=== PATIENT | female | born 1975 | race Caucasian/White ===

== ENCOUNTER 2017-05-21 08:42 | Emergency (ER) | payer BC ==
[2017-05-21 08:57] VITALS: BP 141/95
[2017-05-21] MEDS ORDERED: Prochlorperazine 10 MG/2 ML SDV IVPUSH ONE (09:04)
[2017-05-21] MEDS ORDERED: Ketorolac 30 MG/ML SDV IVPUSH ONE (09:04)
[2017-05-21] MEDS ORDERED: Sodium Chloride 0.9% 10 ML Syringe FLUSH PRN (09:04)
[2017-05-21] MEDS ORDERED: diphenhydrAMINE 50 MG/ML SDV IVPUSH ONE (09:04)
--- NOTE | 2017-05-21 09:11 | EDM.PDOC ---
ED HPI GENERAL MEDICAL PROBLEM - General Chief Complaint: Headache Stated Complaint: MIGRAINE x 3 DAYS Time Seen by Provider: 05/21/17 09:01 Source of Information: Reports: Patient History Limitations: Reports: No Limitations - History of Present Illness INITIAL COMMENTS - FREE TEXT/NARRATIVE: The patient presents with a headache. This started 3 days ago and it is on the right side. She has a history of migraines. She says this feels different. She had an episode like this 8 months ago and they did a CT of her head that was negative. She tried her imitrex and it did not help. She has nausea and vomiting. She has no numbness or weakness. She has no vision changes but the light does bother her eyes. Her last migraine was 3 weeks ago. She never had an MRI and she just sees her regular doctor for the migraines. Onset: Gradual Duration: Day(s): (3) Location: Reports: Head Quality: Reports: Sharp Severity: Severe Improves with: Reports: None Worsens with: Reports: None Associated Symptoms: Reports: Headaches, Nausea/Vomiting. Denies: Chest Pain, Fever/Chills, Shortness of Breath Right Headache Pain Score (Numeric/FACES): 9 - Related Data Allergies Allergy/AdvReac Type Severity Reaction Status Date / Time norco Allergy Vomiting Uncoded 05/21/17 08:53 Home Meds: Home Meds Acetaminophen with Codeine [Tylenol with Codeine #4 Tablet] 1 each PO BID PRN [History] Cyclobenzaprine [Flexeril] 10 mg PO BID PRN 05/21/17 [History] SUMAtriptan Succinate [Imitrex] 100 mg PO DAILY PRN 05/21/17 [History] Social & Family History - Tobacco Use Smoking Status *Q: Never Smoker Second Hand Smoke Exposure: No - Caffeine Use Caffeine Use: Reports: Coffee, Soda - Recreational Drug Use Recreational Drug Use: No ED ROS GENERAL - Review of Systems Review Of Systems: See Below Constitutional: Reports: No Symptoms HEENT: Reports: No Symptoms Respiratory: Reports: No Symptoms Cardiovascular: Reports: No Symptoms Endocrine: Reports: No Symptoms GI/Abdominal: Reports: Nausea, Vomiting. Denies: Abdominal Pain : Reports: No Symptoms Musculoskeletal: Reports: No Symptoms Skin: Reports: No Symptoms Neurological: Reports: Headache - Physical Exam Exam: See Below Exam Limited By: No Limitations General Appearance: Alert, No Apparent Distress Ears: Normal External Exam Nose: Normal Inspection Head Exam: Atraumatic, Normocephalic Neck: Normal Inspection Respiratory/Chest: No Respiratory Distress, Lungs Clear, Normal Breath Sounds Cardiovascular: Regular Rate, Rhythm, No Edema, No Murmur GI/Abdominal: Soft, Non-Tender, No Organomegaly, No Mass Neuro Exam (Abbreviated): Alert, Oriented, No Motor/Sensory Deficits Course - Vital Signs Last Recorded V/S: Last Vital Signs Temp 97.6 F 05/21/17 08:53 Pulse 83 05/21/17 08:53 Resp 18 05/21/17 08:53 BP 141/95 H 05/21/17 08:53 Pulse Ox 100 05/21/17 08:53 - Orders/Labs/Meds Orders: Active Orders 24 hr Category Date Time Status Peripheral IV Care [RC] . DIRECTED Care 05/21/17 09:04 Active Sodium Chloride 0.9% [Saline Flush] Med 05/21/17 09:04 Active 10 ml FLUSH ASDIRECTED PRN Peripheral IV Insertion Adult [OM.PC] Routine Oth 05/21/17 09:04 Ordered Medication Orders Sodium Chloride (Saline Flush) 10 ml FLUSH ASDIRECTED PRN PRN Reason: Keep Vein Open Last Admin: 05/21/17 09:27 Dose: 10 ml Meds: Medications Generic Name Dose Route Start Last Admin Trade Name Freq PRN Reason Stop Dose Admin Sodium Chloride 10 ml 05/21/17 09:04 05/21/17 09:27 Saline Flush FLUSH 10 ml ASDIRECTED PRN Administration Keep Vein Open Discontinued Medications Generic Name Dose Route Start Last Admin Trade Name Freq PRN Reason Stop Dose Admin Diphenhydramine HCl 50 mg 05/21/17 09:04 05/21/17 09:27 Benadryl IVPUSH 05/21/17 09:05 50 mg ONETIME ONE Administration Ketorolac Tromethamine 30 mg 05/21/17 09:04 05/21/17 09:27 Toradol IVPUSH 05/21/17 09:05 30 mg ONETIME ONE Administration Prochlorperazine Edisylate 10 mg 05/21/17 09:04 05/21/17 09:27 Compazine IVPUSH 06/30/17 09:05 10 mg ONETIME ONE Administration - Re-Assessments/Exams Free Text/Narrative Re-Assessment/Exam: 05/21/17 09:11 I ordered an IV saline lock, compazine 10mg IV, toradol 30mg IV, and benadryl 50mg IV. 05/21/17 10:22 She feels much better. I will order an MRI of her brain. The headaches have changed. Departure - Departure Time of Disposition: 10:30 Disposition: Home, Self-Care 01 Condition: Good Clinical Impression: Migraine Headache Qualifiers: Headache type: unspecified Headache chronicity pattern: acute headache Intractability: not intractable Qualified Code(s): R51 - Headache - Discharge Information Referrals: Anni Pulido NP [Primary Care Provider] - 1 Week Forms: ED Department Discharge Additional Instructions: ED HPI GENERAL MEDICAL PROBLEM - General Chief Complaint: Headache Stated Complaint: MIGRAINE x 3 DAYS Time Seen by Provider: 05/21/17 09:01 Source of Information: Reports: Patient History Limitations: Reports: No Limitations - History of Present Illness INITIAL COMMENTS - FREE TEXT/NARRATIVE: The patient presents with a headache. This started 3 days ago and it is on the right side. She has a history of migraines. She says this feels different. She had an episode like this 8 months ago and they did a CT of her head that was negative. She tried her imitrex and it did not help. She has nausea and vomiting. She has no numbness or weakness. She has no vision changes but the light does bother her eyes. Her last migraine was 3 weeks ago. She never had an MRI and she just sees her regular doctor for the migraines. Onset: Gradual Duration: Day(s): (3) Location: Reports: Head Quality: Reports: Sharp Severity: Severe Improves with: Reports: None Worsens with: Reports: None Associated Symptoms: Reports: Headaches, Nausea/Vomiting. Denies: Chest Pain, Fever/Chills, Shortness of Breath Right Headache Pain Score (Numeric/FACES): 9 - Related Data Allergies Allergy/AdvReac Type Severity Reaction Status Date / Time norco Allergy Vomiting Uncoded 05/21/17 08:53 Home Meds: Home Meds Acetaminophen with Codeine [Tylenol with Codeine #4 Tablet] 1 each PO BID PRN [History] Cyclobenzaprine [Flexeril] 10 mg PO BID PRN 05/21/17 [History] SUMAtriptan Succinate [Imitrex] 100 mg PO DAILY PRN 05/21/17 [History] Social & Family History - Tobacco Use Smoking Status *Q: Never Smoker Second Hand Smoke Exposure: No - Caffeine Use Caffeine Use: Reports: Coffee, Soda - Recreational Drug Use Recreational Drug Use: No ED ROS GENERAL - Review of Systems Review Of Systems: See Below Constitutional: Reports: No Symptoms HEENT: Reports: No Symptoms Respiratory: Reports: No Symptoms Cardiovascular: Reports: No Symptoms Endocrine: Reports: No Symptoms GI/Abdominal: Reports: Nausea, Vomiting. Denies: Abdominal Pain : Reports: No Symptoms Musculoskeletal: Reports: No Symptoms Skin: Reports: No Symptoms Neurological: Reports: Headache - Physical Exam Exam: See Below Exam Limited By: No Limitations General Appearance: Alert, No Apparent Distress Ears: Normal External Exam Nose: Normal Inspection Head Exam: Atraumatic, Normocephalic Neck: Normal Inspection Respiratory/Chest: No Respiratory Distress, Lungs Clear, Normal Breath Sounds Cardiovascular: Regular Rate, Rhythm, No Edema, No Murmur GI/Abdominal: Soft, Non-Tender, No Organomegaly, No Mass Neuro Exam (Abbreviated): Alert, Oriented, No Motor/Sensory Deficits Course - Vital Signs Last Recorded V/S: Last Vital Signs Temp 97.6 F 05/21/17 08:53 Pulse 83 05/21/17 08:53 Resp 18 05/21/17 08:53 BP 141/95 H 05/21/17 08:53 Pulse Ox 100 05/21/17 08:53 - Orders/Labs/Meds Orders: Active Orders 24 hr Category Date Time Status Peripheral IV Care [RC] . DIRECTED Care 05/21/17 09:04 Active Sodium Chloride 0.9% [Saline Flush] Med 05/21/17 09:04 Active 10 ml FLUSH ASDIRECTED PRN Peripheral IV Insertion Adult [OM.PC] Routine Oth 05/21/17 09:04 Ordered Medication Orders Sodium Chloride (Saline Flush) 10 ml FLUSH ASDIRECTED PRN PRN Reason: Keep Vein Open Last Admin: 05/21/17 09:27 Dose: 10 ml Meds: Medications Generic Name Dose Route Start Last Admin Trade Name Freq PRN Reason Stop Dose Admin Sodium Chloride 10 ml 05/21/17 09:04 06/30/17 09:27 Saline Flush FLUSH 10 ml ASDIRECTED PRN Administration Keep Vein Open Discontinued Medications Generic Name Dose Route Start Last Admin Trade Name Joni PRN Reason Stop Dose Admin Diphenhydramine HCl 50 mg 05/21/17 09:04 05/21/17 09:27 Benadryl IVPUSH 05/21/17 09:05 50 mg ONETIME ONE Administration Ketorolac Tromethamine 30 mg 05/21/17 09:04 05/21/17 09:27 Toradol IVPUSH 05/21/17 09:05 30 mg ONETIME ONE Administration Prochlorperazine Edisylate 10 mg 05/21/17 09:04 05/21/17 09:27 Compazine IVPUSH 05/21/17 09:05 10 mg ONETIME ONE Administration - Re-Assessments/Exams Free Text/Narrative Re-Assessment/Exam: 05/21/17 09:11 I ordered an IV saline lock, compazine 10mg IV, toradol 30mg IV, and benadryl 50mg IV. 05/21/17 10:22 She feels much better. I will order an MRI of her brain. The headaches have changed. Departure - Departure Time of Disposition: 10:30 Disposition: Home, Self-Care 01 Condition: Good Clinical Impression: Migraine Headache Qualifiers: Headache type: unspecified Headache chronicity pattern: acute headache Intractability: not intractable Qualified Code(s): R51 - Headache - Discharge Information Referrals: Anni Pulido NP [Primary Care Provider] - 1 Week Forms: ED Department Discharge Additional Instructions: Go home and rest in a dark quiet room. Please return if you are worse. - My Orders Last 24 Hours: My Active Orders 05/21/17 09:04 Peripheral IV Care [RC] . DIRECTED Sodium Chloride 0.9% [Saline Flush] 10 ml FLUSH ASDIRECTED PRN Peripheral IV Insertion Adult [OM.PC] Routine - Assessment/Plan Last 24 Hours: My Active Orders 05/21/17 09:04 Peripheral IV Care [RC] . DIRECTED Sodium Chloride 0.9% [Saline Flush] 10 ml FLUSH ASDIRECTED PRN Peripheral IV Insertion Adult [OM.PC] Routine Go home and rest in a dark quiet room. Please return if you are worse. - My Orders Last 24 Hours: My Active Orders 05/21/17 09:04 Peripheral IV Care [RC] . DIRECTED Sodium Chloride 0.9% [Saline Flush] 10 ml FLUSH ASDIRECTED PRN Peripheral IV Insertion Adult [OM.PC] Routine - Assessment/Plan Last 24 Hours: My Active Orders 05/21/17 09:04 Peripheral IV Care [RC] . DIRECTED Sodium Chloride 0.9% [Saline Flush] 10 ml FLUSH ASDIRECTED PRN Peripheral IV Insertion Adult [OM.PC] Routine
== END 2017-05-21 11:00 | disposition home or self-care (01) ==
LOC: JD.ED 08:42
DX: G43.909 Migraine, unspecified, not intractable, without status migrainosus (principal); Z79.899 Other long term (current) drug therapy; Z88.5 Allergy status to narcotic agent
CPT/HCPCS: 96374; 96375; 99284; J0780; J1200; J1885; J7050

== ENCOUNTER 2023-06-30 06:48 | Emergency (ER) | payer BC ==
[2023-06-30] MEDS ORDERED: Sodium Chloride 0.9% 10 ML Syringe FLUSH PRN (07:09)
[2023-06-30] MEDS ORDERED: HYDROmorphone 1 MG/ML Syringe IVPUSH ONE (07:10)
[2023-06-30 07:44] LABS: BASOPHILS ABSOLUTE AUTO 0.02 K/mm3 (0.01-0.08); BASOPHILS PERCENT AUTO 0.2 % (0.1-1.2); EOSINOPHILS ABSOLUTE AUTO 0.09 K/mm3 (0.04-0.36); HEMOGLOBIN 13.7 gm/dl (11.2-15.7); IMMATURE GRAN ABSOLUTE AUTO 0.01 K/mm3 (0.00-0.10); IMMATURE GRAN PERCENT AUTO 0.1 % (<=1.0); LYMPHOCYTES ABSOLUTE AUTO 2.32 K/mm3 (1.18-3.74); LYMPHOCYTES PERCENT AUTO 26.8 % (19.3-51.7); MEAN CORPUSCULAR HEMOGLOBIN 28.3 pg (25.6-32.2); MEAN CORPUSCULAR HGB CONC 33.4 g/dl (32.2-35.5); MEAN CORPUSCULAR VOLUME 84.7 fl (79.4-94.8); MEAN PLATELET VOLUME 9.4 fl (9.4-12.3); MONOCYTES PERCENT AUTO 6.9 % (4.7-12.5); NEUTROPHILS ABSOLUTE AUTO 5.62 K/mm3 (1.56-6.13); PLATELET COUNT,PLT 290 K/mm3 (182-369); RED BLOOD CELL COUNT 4.84 M/mm3 (3.98-5.22); WHITE BLOOD CELL COUNT,WBC 8.66 K/mm3 (3.98-10.04)
[2023-06-30 07:59] LABS: A/G RATIO 0.9 (1-2); ALANINE AMINOTRANSFERASE,ALT 51 U/L (14-59); ALBUMIN 3.2 g/dl (3.4-5.0); ALKALINE PHOSPHATASE 68 U/L (46-116); ANION GAP 8.6 (5-15); ASPARTATE AMNIOTRANSFERASE,AST 25 U/L (15-37); BILIRUBIN TOTAL 0.2 mg/dL (0.2-1.0); BLOOD UREA NITROGEN,BUN 17 mg/dL (7-18); BUN/CREATININE RATIO 28.3 (14-18); C-REACTIVE PROTEIN <0.2 mg/dL (<1.0); CALCIUM 8.8 mg/dL (8.5-10.1); CARBON DIOXIDE,CO2 31 mEq/L (21-32); CHLORIDE,CL 106 mEq/L (98-107); CREATININE 0.6 mg/dL (0.55-1.02); EST CRCL DRUG DOSING (CG) 87.47 mL/min; ESTIMATED GFR 111 mL/min (>60); GLUCOSE RANDOM 88 mg/dL (70-99); POTASSIUM,K 3.6 mEq/L (3.5-5.1); PROTEIN TOTAL,TP 6.6 g/dl (6.4-8.2); SODIUM,NA 142 mEq/L (136-145)
[2023-06-30] MEDS ORDERED: Ketorolac 30 MG/ML SDV IVPUSH ONE (08:25)
[2023-06-30 10:08] VITALS: BP 140/104; PULSE 88
== END 2023-06-30 09:56 | disposition home or self-care (01) ==
LOC: JD.ED 06:48
DX: M43.6 Torticollis (principal); Z79.899 Other long term (current) drug therapy; Z88.5 Allergy status to narcotic agent
CPT/HCPCS: 36415; 80053; 85025; 86140; 96374; 96375; 96376; 99283; J1170; J1885; J3360; J3490